=== PATIENT | male | born 1980 | race Caucasian/White ===

== ENCOUNTER 2023-03-02 12:27 | Emergency (ER) | payer OTHER, SELFPAY ==
--- NOTE | 2023-03-02 12:29 | ED.GENADULT ---
HPI - General Adult General Chief complaint: Dental/Oral Stated complaint: abscess/mouth Time Seen by Provider: 03/02/23 12:36 Source: patient, RN notes reviewed and old records reviewed Mode of arrival: ambulatory Limitations: no limitations History of Present Illness HPI narrative: 42-year-old male presents to the [facility] with dental pain right upper and lower jaw. States has been going on for 3 days. Has taken 1 ibuprofen Reports not seeing a dentist in many years. Has very significant dental disease Onset (ago): day(s) (3) Related Data Allergies Allergy/AdvReac Type Severity Reaction Status Date / Time No Known Allergies Allergy Mild Verified 03/02/23 13:01 Review of Systems Review of Systems: All systems reviewed & are unremarkable except as noted in HPI and below Constitutional: Constitutional: Reports no additional constitutional complaints Eyes: Eyes: Reports no additional eye complaints ENT: Reports as per HPI and Reports dental pain (right lower and upper) Cardiovascular: Cardiovascular: Reports no additional cardiovascular complaints, Denies chest pain and Denies dyspnea Respiratory: Respiratory: Reports no additional respiratory complaints, Denies chest congestion, Denies cough and Denies dyspnea Gastrointestinal: Gastrointestinal: Reports no additional gastrointestinal complaints, Denies abdominal pain, Denies nausea and Denies vomiting Musculoskeletal: Musculoskeletal: Reports no additional musculoskeletal complaints Integumentary/Breasts: Skin/Breast: Reports system reviewed and no additional complaints, except as docu Neurologic: Reports system reviewed and no additional complaints, except as documented Psychiatric: Psychiatric: Reports no additional psychiatric complaints Allergic/Immunologic: Allergic/Immunologic: Reports no additional allergic/immunologic complaints PMFSH Past Medical History Medical History (Updated 03/02/23 @ 14:17 by Polly Vick MD) Patient denies medical problems Periodontal disease Surgical History Surgical History No history of previous surgery Social History Social History Gender identity (if verbalized by the patient): Male Comments At the time of my signature, I reviewed and agree with the nursing past medical, surgical, social, and family history. There is no relevant family history pertinent to the patient complaint. Exam Const: General: cooperative, healthy appearing, no acute distress, well developed, alert, uncomfortable and well nourished Nutritional Appearance: well nourished Orientation/consciousness: patient oriented x3 Limitations: no limitations HENMT: Head: normal to inspection Ears: hearing grossly normal bilaterally and external ears normal Face/Nose/Sinus: Normal external nose present, Normal nares present, Normal nasal mucous membranes and turbinates present and normal facial exam Face and sinus: normal facial exam Mouth: Yes Normal oral and palatal mucosa present, Yes lip normal and Yes tongue normal Teeth and gingiva: abnormal tooth and associated gingiva (Erythema and mild swelling noted to the upper and lower gingiva.), caries and poor dentition Throat: posterior oropharynx normal and uvula midline Other: Right upper and lower jaw swelling with mild erythema. No lymphadenopathy. Very poor dentition. Mild swelling and erythema noted to the right gingiva lower side Able to open mouth. No facial cellulitis Eyes: General: appearance normal, both eyes and all related structures Alignment and Position: alignment normal Periorbital: periorbital findings normal Pupils: Equal, round and reactive pupils present EOM: EOMs intact bilaterally Neck: Neck: normal visual inspection, full ROM, no lymphadenopathy and no meningeal signs Chest: Chest palpation & inspection: normal inspection of the chest Resp: Effort & In
[2023-03-02 12:30] VITALS: BP 127/89; PULSE 96; RESP 14; TEMP 36.8; O2SAT 98
== END 2023-03-02 12:43 | disposition home or self-care (01) ==
PROVIDERS: Emergency Provider Nurse Practitioner
DX: K04.7 Periapical abscess without sinus (principal)
CPT/HCPCS: 99213; G0463

== ENCOUNTER 2023-03-02 13:01 | Emergency (ER) | payer OTHER, SELFPAY ==
[2023-03-02 13:08] VITALS: BP 119/61; PULSE 100; RESP 18; TEMP 36.6; O2SAT 95
--- NOTE | 2023-03-02 13:26 | ED.DENTAL ---
HPI - Dental/Oral General Chief complaint: Dental/Oral Stated complaint: toothache Time Seen by Provider: 03/02/23 13:26 Source: patient Mode of arrival: ambulatory Limitations: no limitations History of Present Illness HPI Narrative: Patient is a 42-year-old male presenting to the emergency department for evaluation of right upper molar tooth pain. Patient reports a worsening 2-week history of dental pain, described as aching in nature, preventing the patient from sleeping. He reports mild swelling of the right cheek area. He denies eye pain, visual changes, eye swelling, redness, headache, fever. Patient was seen at a local urgent care today and prescribed antibiotics as well as anti-inflammatory pain medication. Patient then showed the discharge paperwork to his mother who advised to come to the emergency department for further evaluation. Patient denies any . There is mild pain with opening his mouth. Patient does have a history of extensive periodontal disease. Related Data Allergies Allergy/AdvReac Type Severity Reaction Status Date / Time No Known Allergies Allergy Mild Verified 03/02/23 13:01 Review of Systems Review of Systems: CONSTITUTIONAL: Denies fever HEENT: Reports right upper jaw pain, tooth pain CARDIOVASCULAR: Denies chest pain RESPIRATORY: Denies cough or dyspnea. GASTROINTESTINAL: Denies abdominal pain SKIN: Denies rash MUSCULOSKELETAL: Denies back pain NEUROLOGIC: Denies headache PMFSH Past Medical History Medical History (Updated 03/02/23 @ 14:17 by Polly Vick MD) Patient denies medical problems Periodontal disease Surgical History Surgical History No history of previous surgery Social History Social History Gender identity (if verbalized by the patient): Male Exam Narrative: GENERAL: Awake, alert, conversant HEAD: Normocephalic, atraumatic. EYES: PERRLA and EOMI. ENT: Nares clear, no rhinorrhea or epistaxis. Mucous membranes moist. No trismus. Uvula is midline. Mild gingival edema, right upper molar area, extensive periodontal disease with dental caries present. NECK: Supple. No submandibular or cervical lymphadenopathy. CHEST: No respiratory distress, breathing even and non labored HEART: Regular rate, sinus rhythm ABDOMEN:Non distended, non tender EXTREMITIES: Normal range of motion. No edema. SKIN: Warm, dry, no rash. NEURO:No focal deficits. Alert and oriented x3 Course Vital Signs Vital signs: Vital Signs Temperature 36.6 C 03/02/23 13:08 Pulse Rate 100 03/02/23 13:08 Respiratory Rate 18 03/02/23 13:08 Blood Pressure 119/61 03/02/23 13:08 Pulse Oximetry 95 03/02/23 13:08 Oxygen Delivery Room Air 03/02/23 13:08 Temperature 36.6 C 03/02/23 13:08 Pulse Rate 100 03/02/23 13:08 Respiratory Rate 18 03/02/23 13:08 Blood Pressure 119/61 03/02/23 13:08 Pulse Oximetry 95 03/02/23 13:08 Oxygen Delivery Room Air 03/02/23 13:08 Procedures Abscess I/D other: Date of Incision: 03/02/23 Time of Incision: 15:05 Sedation/analgesia: none Local Anesthetic: lidocaine 1% Amount of anesthesia used (mL): 5 Technique: needle aspiration Amount of fluid expressed (mL): 5 Irrigation: Yes Packing used?: none I&D Results: Blood Complications: pain Abcess I&D Additional Comments: No purulent discharge Nerve Block Nerve Block 1: Nerve block date: 03/02/23 Nerve block time: 14:00 Local Anesthetic: lidocaine 1% Amount of anesthesia used (mL): 5 Side: right Intraoral Nerve Block: infraorbital Procedure Successful: Yes Patient Tolerated Procedure: well and no complications Complications: none MDM - Dental/Oral MDM Narrative Medical decision making narrative: Medical decision making
[2023-03-02] MEDS: LIDOCAINE HCL 1% PF INJ 5 ML VIAL 10 ML INFILTRATE (13:51)
== END 2023-03-02 14:26 | disposition home or self-care (01) ==
PROVIDERS: Emergency Provider Emergency Medicine
DX: K08.89 Other specified disorders of teeth and supporting structures (principal)
CPT/HCPCS: 41800; 99282